=== PATIENT | female | born 1965 | race African-American/Black ===

== ENCOUNTER 2021-08-10 07:20 | Emergency (ER) | payer OTHER ==
[~2021-08-10] VITALS: Ht 175.3 cm; Wt 112.9 kg
[2021-08-10] MEDS ORDERED: GABA-282 PO ×2 (07:32→12:59)
[2021-08-10] MEDS ORDERED: ATOR40TA75 PO (07:32)
[2021-08-10] MEDS ORDERED: NOVOINJ3 SC (07:32)
[2021-08-10] MEDS ORDERED: MIDOTAB11 PO (07:32)
[2021-08-10] MEDS ORDERED: ASPI81CH33 PO (07:32)
[2021-08-10] MEDS ORDERED: PIOG1TAB37 PO (07:32)
[2021-08-10] MEDS ORDERED: FARX1TAB3 PO (07:32)
[2021-08-10] MEDS ORDERED: METF10004 PO (07:32)
[2021-08-10 09:25] LABS: BASO % 0.5 % (0.0-1.0); EOS # 0.1 10^3/uL (0.0-0.5); EOS % 1.4 % (0.0-3.0); HEMATOCRIT 41.3 % (36.0-47.0); HEMOGLOBIN 12.7 g/dl (12.0-15.5); LYMPH # 3.6 10^3/uL (1.5-5.0); LYMPH % 42.9 % (24.0-44.0); MEAN CORPUSCULAR HEMOGLOBIN 24.2 pg (27.0-33.0); MEAN CORPUSCULAR HGB CONC 30.8 g/dl (32.0-36.5); MEAN CORPUSCULAR VOLUME 78.8 fl (80.0-96.0); MONO # 0.7 10^3/uL (0.0-0.8); MONO % 8.5 % (2.0-8.0); NEUTROPHILS # 3.9 10^3/uL (1.5-8.5); NEUTROPHILS % 46.5 % (36.0-66.0); PLATELET COUNT, AUTOMATED 296 10^3/uL (150-450); RED BLOOD COUNT 5.24 10^6/uL (4.00-5.40); WHITE BLOOD COUNT 8.3 10^3/uL (4.0-10.0)
[2021-08-10] MEDS ORDERED: KETOROLAC 30 MG/ML 1ML VIAL IV ONE (11:10)
[2021-08-10] MEDS ORDERED: NAPR-837 PO (12:59)
[2021-08-10 13:11] VITALS: BP 118/75
== END 2021-08-10 13:14 | disposition home or self-care (01) ==
LOC: M ED 07:20
DX: G90.09 Other idiopathic peripheral autonomic neuropathy (principal); J45.909 Unspecified asthma, uncomplicated; E11.9 Type 2 diabetes mellitus without complications; I10 Essential (primary) hypertension; Z79.4 Long term (current) use of insulin; Z79.899 Other long term (current) drug therapy
CPT/HCPCS: 72131; 84132; 85025; 96374; 99284; J1885

== ENCOUNTER 2021-11-14 08:20 | Emergency (ER) | payer OTHER ==
[~2021-11-14] VITALS: Ht 175.3 cm; Wt 100.0 kg
[~2021-11-14 08:20] MED LIST: ASPI81CH33 PO; ATOR40TA75 PO; FARX1TAB3 PO; GABA-282 PO; METF10004 PO; MIDOTAB11 PO; NAPR-837 PO; NOVOINJ3 SC; PIOG1TAB37 PO
[2021-11-14] MEDS ORDERED: NEUR300C PO (11:48)
[2021-11-14 12:26] VITALS: BP 123/80
== END 2021-11-14 12:27 | disposition home or self-care (01) ==
LOC: M ED 08:20
DX: G90.09 Other idiopathic peripheral autonomic neuropathy (principal); M79.661 Pain in right lower leg; M79.662 Pain in left lower leg; R51.9 Headache, unspecified; J45.909 Unspecified asthma, uncomplicated; E11.9 Type 2 diabetes mellitus without complications; Z79.84 Long term (current) use of oral hypoglycemic drugs; Z79.899 Other long term (current) drug therapy

== ENCOUNTER → 2022-03-15 | Outpatient (CLI) | payer OTHER ==
[~2022-03-15] MED LIST changes: +NEUR300C PO
== END ==
LOC: M WHC 07:27
PROVIDERS: ATTEND Family Medicine
DX: Z12.31 Encounter for screening mammogram for malignant neoplasm of breast (principal); Z85.3 Personal history of malignant neoplasm of breast

== ENCOUNTER 2023-01-26 11:42 | Emergency (ER) | payer OTHER ==
[~2023-01-26] VITALS: Ht 175.3 cm; Wt 108.6 kg
[2023-01-26] MEDS ORDERED: LISI2.5T9 (12:10)
[2023-01-26] MEDS ORDERED: TRUL10IN (12:10)
[2023-01-26] MEDS ORDERED: PERCOCET 5MG/325MG TAB PO ONE (14:30)
[2023-01-26] MEDS ORDERED: TRAM50TA2 PO (15:46)
[2023-01-26 15:57] VITALS: BP 137/68; TEMP 97.9; O2SAT 99
== END 2023-01-26 15:58 | disposition home or self-care (01) ==
LOC: EDBD 11:42 → M ED 11:42
DX: M25.461 Effusion, right knee (principal); S40.022A Contusion of left upper arm, initial encounter; S80.01XA Contusion of right knee, initial encounter; S23.41XA Sprain of ribs, initial encounter; M17.11 Unilateral primary osteoarthritis, right knee; W01.0XXA Fall on same level from slipping, tripping and stumbling without subsequent striking against object, initial encounter; E11.9 Type 2 diabetes mellitus without complications; I10 Essential (primary) hypertension; J45.909 Unspecified asthma, uncomplicated; Y92.59 Other trade areas as the place of occurrence of the external cause; Y93.9 Activity, unspecified; Y99.9 Unspecified external cause status; Z79.82 Long term (current) use of aspirin; Z79.02 Long term (current) use of antithrombotics/antiplatelets; Z79.811 Long term (current) use of aromatase inhibitors; Z79.899 Other long term (current) drug therapy

== ENCOUNTER → 2023-04-18 | Outpatient (CLI) | payer OTHER ==
[~2023-04-18] MED LIST changes: +LISI2.5T9; +TRAM50TA2 PO; +TRUL10IN
== END ==
LOC: M SOG 07:59
PROVIDERS: ATTEND Orthopaedic Surgery
DX: M25.561 Pain in right knee (principal); Z53.9 Procedure and treatment not carried out, unspecified reason